=== PATIENT | female | born 1980 | race Caucasian/White ===

== ENCOUNTER 2020-02-10 19:41 | Observation (INO) ==
[2020-02-10] MEDS ORDERED: NALOXONE 0.4 MG/ML VIAL IV STA (20:06)
[2020-02-10] MEDS ORDERED: SODIUM CHLORIDE 0.9% 1,000 ML IV STA (20:07)
[2020-02-10 20:44] LABS: Basophils # 0.1 10*3/uL (0.0-0.2); Basophils % 0.6 % (0.0-0.8); Eosinophils # 0.1 10*3/uL (0.0-0.87); Eosinophils % 1.8 % (0.00-10.9); Hematocrit 40.2 VOL% (35.7-47.0); Immature Granulocytes % 0.1 %; Immature Granulocytes Absolute 0.01 #; Lymphocytes # 3.5 10*3/uL (1.4-4.0); Lymphocytes % 44.8 % (21.3-54.2); Mean Corpuscular HGB Conc 32.3 GM/DL (32-36); Mean Corpuscular Volume 87.6 FL (87-102); Mean Platelet Volume 10.1 FL (9.6-12.0); Monocytes % 10.2 % (1.7-12.7); Neutrophils % 42.5 % (38.7-73.9); Platelet Count 267 T/CUMM (130-400); Red Blood Count 4.59 MC/CUMM (3.8-5.5); Red Cell Distribution Width 13.4 % (9.3-17.3); White Blood Count 7.8 T/CUMM (4-12)
[2020-02-10 20:55] LABS: Alanine Aminotransferase 40 U/L (13-56); Albumin 3.9 G/DL (3.4-5.0); Alkaline Phosphatase 52 U/L (45-117); Aspartate Amino Transferase 30 U/L (0-37); Blood Urea Nitrogen 12 MG/DL (7-18); Calcium 8.5 MG/DL (8.5-10.1); Estimated Glom Filtration Rate 67 ML/MIN; Glucose 152 MG/DL (74-106); Osmolality,Calculated 279.5 MOS/KG (273-304)
[2020-02-10 21:01] LABS: Apearance,Urine Slightly Hazy (Clear); Bacteria,Urine Occasional /HPF (Few); Bilirubin,Urine Negative (Negative); Blood, Urine Negative (Negative); Glucose,Urine (UA) Negative (Negative); Hyaline Casts,Urine 23 /LPF (0-3); Ketones,Urine 5 mg/dL (Negative); Mucus,Urine Few /LPF (Occasional); Nitrite,Urine Positive (Negative); Protein,Urine >=500 MG/DL; Squamous Epithelial Cell,Urine Occasional /HPF (0-10); Urine Color Amber (Yellow); Urine Specific Gravity 1.024 (1.001-1.035); WBC,Urine 9 /HPF (0-6)
[2020-02-10 21:02] LABS: Barbiturates Screen,Urine Negative (Negative); Benzodiazepines Screen,Urine Negative (Negative); Cannabinoid Screen,Urine Negative (Negative); Opiate Screen,Urine Negative (Negative); Phencyclidine Screen,Urine Negative (Negative)
[2020-02-10] MEDS ORDERED: cefTRIAXone 1,000 MG in SODIUM CHLORIDE 0.9% 100 ML IV STA (21:15)
[2020-02-10] MEDS ORDERED: diphenhydrAMINE CAP 25 MG CAPSULE PO PRN (21:49)
[2020-02-10] MEDS ORDERED: guaiFENesin/DM ER 600-30 MG TABLET PO PRN (21:49)
[2020-02-10] MEDS ORDERED: DEXTROSE 50% 25 GM/50 ML VIAL IV PRN (21:49)
[2020-02-10] MEDS ORDERED: NICOTINE 21 MG/24 HR PATCH TRANSDERM PRN (21:49)
[2020-02-10] MEDS ORDERED: ACETAMINOPHEN 325 MG TABLET PO PRN (21:49)
[2020-02-10] MEDS ORDERED: ONDANSETRON 4 MG/2 ML VIAL IV PRN (21:49)
[2020-02-10] MEDS ORDERED: ZALEPLON 5 MG CAPSULE PO PRN (21:49)
[2020-02-10] MEDS ORDERED: CALCIUM CARBONATE CHEW 500 MG TABLET PO PRN (21:49)
[2020-02-10] MEDS ORDERED: PROMETHAZINE 25 MG/1 ML VIAL IM PRN (21:49)
[2020-02-10] MEDS ORDERED: ALBUTEROL 2.5 MG/3 ML NEB RESP TX PRN (21:49)
[2020-02-10] MEDS ORDERED: ALUMINUM/MAGNES/SIMETH MAX STR 30 ML UDCUP PO PRN (21:49)
[2020-02-10] MEDS ORDERED: hydrALAZINE 20 MG/1 ML VIAL IV PRN (21:49)
[2020-02-10] MEDS ORDERED: GLUCAGON 1 MG VIAL IM PRN (21:49)
[2020-02-11] MEDS ORDERED: POTASSIUM CHLORIDE 20 MEQ TABLET PO ONE (01:00)
[2020-02-11] MEDS: SODIUM CHLORIDE 0.9% 1,000 ML IV SCH ×2 (02:05→09:57)
[2020-02-11 05:38] LABS: Basophils % 0.5 % (0.0-0.8); Eosinophils # 0.1 10*3/uL (0.0-0.87); Hematocrit 39.1 VOL% (35.7-47.0); Hemoglobin 12.6 GM/DL (12.0-16.0); Immature Granulocytes % 0.2 %; Immature Granulocytes Absolute 0.02 #; Lymphocytes # 2.2 10*3/uL (1.4-4.0); Lymphocytes % 25.2 % (21.3-54.2); Mean Corpuscular HGB Conc 32.2 GM/DL (32-36); Mean Corpuscular Volume 87.3 FL (87-102); Mean Platelet Volume 11.4 FL (9.6-12.0); Monocytes % 8.6 % (1.7-12.7); Neutrophils % 64.5 % (38.7-73.9); Platelet Count 154 T/CUMM (130-400); Red Blood Count 4.48 MC/CUMM (3.8-5.5); Red Cell Distribution Width 13.6 % (9.3-17.3); White Blood Count 8.7 T/CUMM (4-12)
[2020-02-11 06:32] LABS: Albumin 3.6 G/DL (3.4-5.0); Bilirubin,Total 0.5 MG/DL (0.2-1.0); Calcium 8.7 MG/DL (8.5-10.1); Osmolality,Calculated 277.4 MOS/KG (273-304); Total Protein 7.4 G/DL (6.4-8.3)
[2020-02-11 06:41] LABS: Eosinophils 2 % (0-10); Hypochromasia 1+; Lymphocytes 34 % (20-55); Microcytosis Slight; Segmented Neutrophils 60 % (50-85); Total Cells Counted 100
[2020-02-11 06:42] LABS: Atypical Lymphocytes Few; Platelet Estimate Adequate
[2020-02-11] MEDS ORDERED: DOCUSATE SODIUM 100 MG CAPSULE PO SCH (09:00)
[2020-02-11 10:08] VITALS: BP 97/66
[2020-02-11] MEDS: ENOXAPARIN 40 MG/0.4 ML SYRINGE SUBCUT SCH ×2 (11:14→11:16)
[2020-02-11] MEDS: PANTOPRAZOLE 40 MG TABLET PO SCH ×2 (11:14→11:28)
[2020-02-11] MEDS ORDERED: cefTRIAXone 1,000 MG in SYRINGE 1 EACH IV SCH (21:00)
== END 2020-02-11 12:09 | disposition home or self-care (01) ==
LOC: EDBD → EDUNIT# → N.EDINP 19:41 → N.ED 19:41 → SUATTDRO 21:49 → N.TELES 02-11 00:12
PROVIDERS: ADMIT Hospitalist; ATTEND Internal Medicine Critical Care Medicine